=== PATIENT | female | born 1960 | race Caucasian/White ===

== ENCOUNTER 2016-10-22 10:39 | Emergency (ER) | payer MEDICAID ==
--- NOTE | 2016-10-22 10:44 | ED Physician Chart ---
Chief Complaint/HPI - Patient Information Date Seen:: 10/22/16 Time Seen:: 10:44 Chief Complaint:: back pain History of Present Illness:: 56-year-old female complains of acute, constant, worsening, severe, 10 out of 10 , nonradiating, left sided thoracolumbar area back pain since yesterday morning. Has associated headache. Denies dysuria, increased frequency urination, fevers, chest pain, nausea, vomiting, acute vision changes.. Historian:: Patient Review:: Nurse's Note Reviewed Review of Systems - Review of Systems Other: Complete system review otherwise unremarkable except as noted in HPI. Past Medical History - Past Medical History Past Medical History: No significant medical hx Family History: None Social History: Non Smoker, No Alcohol, No Drug Use Surgical History: None Psychiatricy History: None Medication: None Family Medical History - Family Member Mother History Unknown: Yes Ethnicity: Physical Exam - Physical Examination Other:: INITIAL VITAL SIGNS: Reviewed by me GENERAL: Alert and interactive. Appears to be in some pain. HEAD: Head is normocephalic and atraumatic EYES: EOMI. . No scleral icterus. No conjunctival injection ENT: Moist mucous membranes. NECK: Supple. No masses. Full range of motion RESPIRATORY: No tachypnea. Clear breath sounds bilaterally. No wheezing, rales, or rhonchi CV: Regular rate and rhythm. No murmurs, rubs, or gallops ABDOMEN: Soft, non-distended, non-tender. No guarding. No rebound. No masses. She does have some left-sided CVA tenderness to palpation. EXTREMITIES: No deformity. No cyanosis. No edema. SKIN: Warm and dry. No obvious rashes. NEUROLOGIC: Alert and oriented. Face is symmetric. Speech is normal. Moves all extremities equally. Motor and sensory distally intact. Labs/Radiology/EKG Results - Lab Results Results: Lab Results 10/22/16 10/22/16 10/22/16 Range/Units 10:59 11:28 11:28 WBC 8.5 (4.8-10.8) Th/cmm RBC 4.26 (3.80-5.10) Mil/cmm Hgb 13.1 (11.7-15.5) gm/dL Hct 38.7 (35.0-45.0) % MCV 90.6 (81-100) fl MCH 30.8 (27.0-31.0) pg MCHC Differential 33.9 (28.0-36.0) pg RDW 12.3 (11.5-20.0) % Plt Count 205 (150-400) Th/cmm MPV 8.6 fl Neutrophils % 73.5 (40.0-80.0) % Lymphocytes % 18.5 L (20.0-50.0) % Monocytes % 6.9 (2.0-10.0) % Eosinophils % 0.9 (0.0-5.0) % Basophils % 0.2 (0.0-2.0) % Sodium 136 (136-145) mEq/L Potassium 3.9 (3.5-5.1) mEq/L Chloride 109 H (98-107) mEq/L Carbon Dioxide 23.2 (21.0-31.0) mEq/L Anion Gap 7.7 (7.0-16.0) BUN 19 (7-25) mg/dL Creatinine 0.6 (0.6-1.2) mg/dL Est GFR ( Amer) > 60.0 (>90) ml/min Est GFR (Non-Af Amer) > 60.0 ml/min BUN/Creatinine Ratio 31.7 Glucose 117 H (70-105) mg/dL Calcium 8.5 L (8.6-10.3) mg/dL Total Bilirubin 0.4 (0.3-1.0) mg/dL AST 15 (13-39) U/L ALT 18 (7-52) U/L Alkaline Phosphatase 100 (34-104) U/L Total Protein 6.4 (6.0-8.3) gm/dL Albumin 3.9 (3.7-5.3) gm/dL Globulin 2.5 gm/dL Albumin/Globulin Ratio 1.6 (1.0-1.8) Urine Source CLEAN C Urine Color YELLOW Urine Clarity SL. CLOUDY (CLEAR) Urine pH 6.0 Ur Specific [place] 1.025 (1.005-1.030) Urine Protein NEGATIVE (NEGATIVE) mg/dL Urine Glucose (UA) NEGATIVE (NEGATIVE) mg/dL Urine Ketones NEGATIVE (NEGATIVE) mg/dL Urine Blood TRACE (NEGATIVE) Urine Nitrate NEGATIVE (NEGATIVE) Urine Bilirubin NEGATIVE (NEGATIVE) Urine Urobilinogen 0.2 (0.2 - 1.0) E.U./dL Ur Leukocyte Esterase NEGATIVE (NEGATIVE) Urine RBC 0-2 (0-5) /hpf Urine WBC NONE SEEN (0-5) /hpf Ur Epithelial Cells OCCASIONAL (FEW) /lpf Urine Bacteria OCCASIONAL (NONE SEEN) /hpf - Radiology Results Results: CT abdomen and pelvis without contrast per radiology No acute findings ED Septic Shock - . Is Septic Shock (SBP<90, OR Lactate>4 mmol\L) present?: No Reassessment (Disposition) - Reassessment Reassessment:: The patient's blood pressure was elevated (>120/80) but appears stable without evidence of hypertensive emergency or urgency. The patient was counseled about the risks hypertension urged to pursue outpatient monitoring and therapy within a week with her primary care physician. Patient has no acute findings on CT or labs to explain the back pain. Most likely this is musculoskeletal. She responded well to the IV analgesics. We have provided her with a prescription for analgesic medication and anti- inflammatory medication. Recommended follow-up with PCP in one to 2 days. Gave return to ER precautions. Patient understands and agrees with the plan. Reassessment Condition:: Improved - Diagnosis Diagnosis:: Back pain, musculoskeletal Elevated blood pressure without diagnosis of hypertension Hypocalcemia - Aftercare/Follow up Instructions Aftercare/Follow-Up Instructions:: Counseled pt regarding lab results/diagnosis & need follow up, Refer to Discharge Instructions Medication Prescribed:: [place] Ibuprofen - Patient Disposition Discharge/Transfer:: Home Time:: 12:31 Condition at Disposition:: Improved ED Discharge Plan - Patient Disposition Admit/Discharge/Transfer: PT DISCHARGED HOME Condition at Disposition: Improved Instructions: Musculoskeletal Pain
[2016-10-22] MEDS ORDERED: Prochlorperazine 5 mg/mL 2mL Vial IVP STA (10:51)
[2016-10-22] MEDS ORDERED: Dexamethasone Sodium Phos 4 mg/mL Vial IVP STA (10:51)
[2016-10-22] MEDS ORDERED: Sodium Chloride 0.9% 1,000 ML IV ONE (10:52)
[2016-10-22] MEDS ORDERED: Dexamethasone Sodium Phos 10 mg/mL PF Vial ONE (11:07)
[2016-10-22] MEDS ORDERED: Prochlorperazine 5 mg/mL 2mL Vial ONE (11:07)
[2016-10-22 11:36] LABS: URINE BILIRUBIN NEGATIVE (NEGATIVE); URINE BLOOD TRACE (NEGATIVE); URINE COLOR YELLOW; URINE GLUCOSE (UA) NEGATIVE (NEGATIVE); URINE KETONE NEGATIVE (NEGATIVE); URINE PROTEIN NEGATIVE (NEGATIVE); URINE UROBILINOGEN 0.2 E.U./dL (0.2 - 1.0)
[2016-10-22 11:36] LABS: % BASOPHILS 0.2 % (0.0-2.0); % EOSINOPHILS 0.9 % (0.0-5.0); % LYMPHOCYTES 18.5 % (20.0-50.0); % MONOCYTES 6.9 % (2.0-10.0); % NEUTROPHILS 73.5 % (40.0-80.0); HEMATOCRIT 38.7 % (35.0-45.0); HEMOGLOBIN 13.1 gm/dL (11.7-15.5); MEAN CELL VOLUME 90.6 fl (81-100); MEAN CORPUSCULAR HEMOGLOBIN 30.8 pg (27.0-31.0); MEAN CORPUSCULAR HGB CONC 33.9 pg (28.0-36.0); MEAN PLATELET VOLUME 8.6 fl; NEUTROPHILE ABSOLUTE 6.2 Th/cmm (1.8-8.0); PLATELET COUNT 205 Th/cmm (150-400); RED BLOOD COUNT 4.26 Mil/cmm (3.80-5.10); RED CELL DISTRIBUTION WIDTH 12.3 % (11.5-20.0); WHITE BLOOD COUNT 8.5 Th/cmm (4.8-10.8)
[2016-10-22 11:40] LABS: URINE BACTERIA OCCASIONAL /hpf (NONE SEEN); URINE EPITHELIAL CELLS OCCASIONAL /lpf (FEW); URINE RBC 0-2 /hpf (0-5); URINE WBC NONE SEEN /hpf (0-5)
[2016-10-22 11:53] LABS: ALB/GLOB RATIO 1.6 (1.0-1.8); ALKALINE PHOSPHATASE 100 U/L (34-104); ANION GAP 7.7 (7.0-16.0); BILIRUBIN,TOTAL 0.4 mg/dL (0.3-1.0); BUN - UREA NITROGEN 19 mg/dL (7-25); BUN/CREATININE RATIO 31.7; CALCIUM SERUM 8.5 mg/dL (8.6-10.3); CARBON DIOXIDE 23.2 mEq/L (21.0-31.0); CHLORIDE 109 mEq/L (98-107); CREATININE - SERUM 0.6 mg/dL (0.6-1.2); GLUCOSE 117 mg/dL (70-105); POTASSIUM SERUM 3.9 mEq/L (3.5-5.1); SGOT 15 U/L (13-39); SGPT/ALT 18 U/L (7-52); SODIUM SERUM 136 mEq/L (136-145)
[2016-10-22] MEDS ORDERED: HYDROmorphone 1 mg/mL 1mL Syr IVP STA (12:13)
[2016-10-22] MEDS ORDERED: HYDROmorphone 1 mg/mL 1mL Syr ONE (12:18)
--- NOTE | 2016-10-23 09:44 | Diagnostic Imaging Report ---
INDICATION: Pain Technique: Serial axial images were performed through the abdomen and pelvis and then reformatted in the coronal plane. CTDI is 9.9mGy. [id number] FINDINGS: Lung bases clear. Intact bilateral breast prosthesis. Liver and spleen are normal in size without focal mass. No renal masses stones or hydronephrosis. No masses or enlargement of the adrenal glands or pancreas. No biliary dilatation. Gallbladder contains no stones No distention of small bowel loops. The appendix is not well seen. Within the pelvis bladder is smooth walled without stones. No abnormal masses or fluid collections. Small sigmoid diverticuli without evidence of diverticulitis. Bilateral femoral hernias containing fat. Bone windows show no lytic or blastic lesions of bone. IMPRESSION: No acute disease in the abdomen or pelvis.
== END 2016-10-22 12:55 | disposition home or self-care (01) ==
LOC: ER 10:39
DX: M54.9 Dorsalgia, unspecified (principal); R03.0 Elevated blood-pressure reading, without diagnosis of hypertension; E83.51 Hypocalcemia
CPT/HCPCS: 99285; 96374; 96375; 74176; 36415; 85025; 81001; 80053; J1885; J0780; J1170; J7030

== ENCOUNTER 2017-01-19 12:57 | Emergency (ER) | payer MEDICAID ==
--- NOTE | 2017-01-19 13:51 | ED Physician Chart ---
Chief Complaint/HPI - Patient Information Date Seen:: 01/19/17 Time Seen:: 13:35 Chief Complaint:: cough History of Present Illness:: Patient has had cough and congestion for more than one week. Her cough is productive of green sputum. She thinks at the beginning of the illness she had a fever although she did not take her temperature. She denies fever at present. She has pleuritic chest pain with coughing Allergies:: Allergies Allergy/AdvReac Type Severity Reaction Status Date / Time No Known Allergies Allergy Verified 01/19/17 13:18 Vitals:: Vital Signs - 8 hr 01/19/17 13:20 Temp 98.7 F HR 98 RR 20 BP 123/76 O2 Sat % 95 Historian:: Patient Review:: Nurse's Note Reviewed Review of Systems - Review of Systems General/Constitutional: Fever Skin: No skin lesions Head: No headache Eyes: No loss of vision ENT: No earache Neck: No neck pain Cardio Vascular: Chest pain Pulmonary: SOB, Cough GI: No vomiting, No diarrhea G/U: No dysuria Musculoskeletal: No bone or joint pain Endocrine: No polyuria Psychiatric: No prior psych history Hematopoietic: No bruising Allergic/Immuno: No urticaria Neurological: No syncope, No focal symptoms Past Medical History - Past Medical History Past Medical History: Asthma/COPD Family History: Diabetes Melitus, HTN Social History: Non Smoker, No Alcohol Surgical History: , other (2 sections) Psychiatricy History: None Medication: Reviewed Family Medical History - Family Member Mother History Unknown: Yes Ethnicity: Hx Family Hypertension: Yes Physical Exam - Physical Examination General/Constitutional: Well-developed, well-nourished, Alert, No distress Other Gen/Cons comments:: Frequent cough Head: Atraumatic Eyes: Lids, conjuctiva normal, PERRL Skin: Nl inspection, No rash, No skin lesions, No ecchymosis ENMT: External ears, nose nl, TM canals nl, Nasal exam nl, Lips, teeth, gums nl , Oropharynx nl, Tonsils nl Neck: No nuchal rigidity Respiratory: Nl effort/Exclusion Other Respiratory comments:: Left-sided rhonchi; rales at both bases; few scattered wheezes Cardio Vascular: RRR, No murmur, gallop, rubs, NL S1 S2 GI: No tenderness/rebounding/guarding : No CVA tenderness Extremities: No tenderness or effusion Neuro/Psych: Alert/oriented, Normal sensory exam, No focal deficits Misc: Normal back Labs/Radiology/EKG Results - Radiology Results Results: CXR: elevation of right tara-diaphragm; otherwise normal ED Septic Shock - . Is Septic Shock (SBP<90, OR Lactate>4 mmol\L) present?: No - <6hrs of presentation: Vital Signs: Vital Signs - 8 hr 01/19/ 13:20 Temp 98.7 F HR 98 RR 20 BP 123/76 O2 Sat % 95 Reassessment (Disposition) - Reassessment Reassessment Condition:: Improved - Aftercare/Follow up Instructions Aftercare/Follow-Up Instructions:: Refer to Discharge Instructions Medication Prescribed:: Z pack Sig per directions - Patient Disposition Discharge/Transfer:: Home Condition at Disposition:: Stable, Improved
--- NOTE | 2017-01-19 14:17 | Diagnostic Imaging Report ---
Chest x-ray (2 views) HISTORY: Cough There is a poor inspiration. Heart size difficult to assess. Slight elevation of the right hemidiaphragm. No acute focal pulmonary processes. No hilar or mediastinal abnormalities. IMPRESSION: No acute abnormalities
[2017-01-19] MEDS ORDERED: Albuterol/Ipratropium Neb 3 ML AERS HHN ONE ×2 (14:31→14:35)
== END 2017-01-19 15:15 | disposition home or self-care (01) ==
LOC: ER 12:57
DX: R05 Cough (principal); R07.81 Pleurodynia; J45.909 Unspecified asthma, uncomplicated; J44.9 Chronic obstructive pulmonary disease, unspecified
CPT/HCPCS: 71020-TC; 94640; Z7502